=== PATIENT | female | born 1965 | race Caucasian/White ===

== ENCOUNTER 2018-02-09 15:45 | Emergency (ER) | payer MEDICAID, OTHER ==
[~2018-02-09] VITALS: Ht 172.7 cm; Wt 91.2 kg
[2018-02-09 15:50] VITALS: BP 170/88
[2018-02-09] MEDS ORDERED: HYDR-3965 PO (16:53)
== END 2018-02-09 17:23 | disposition home or self-care (01) ==
LOC: ER 15:45
DX: S63.501A Unspecified sprain of right wrist, initial encounter (principal); W19.XXXA Unspecified fall, initial encounter; Y93.89 Activity, other specified; Y99.8 Other external cause status; Y92.090 Kitchen in other non-institutional residence as the place of occurrence of the external cause
CPT/HCPCS: 99284